=== PATIENT | female | born 1950 | race Caucasian/White ===

== ENCOUNTER 2019-12-11 21:26 | Outpatient (REF) | payer BC, SELFPAY ==
[2019-12-11 21:22] LABS: Anion Gap 7.2 mmol/L (3-11); BUN 22 mg/dL (7-18); CO2 29.8 mmol/L (21.0-32.0); CREATININE 0.85 mg/dL (0.55-1.02); Chloride 101 mmol/L (98-107); Glucose 100 mg/dL (74-106); Potassium 3.8 mmol/L (3.5-5.1); Sodium 138 mmol/L (136-145); TSH 1.51 uIU/mL (0.36-3.74)
== END 2019-12-11 21:46 ==
LOC: NCHCN 21:26
PROVIDERS: PCP Internal Medicine; Visit Provider Internal Medicine
DX: I10 Essential (primary) hypertension (principal)
CPT/HCPCS: 80048; 84443

== ENCOUNTER 2021-05-27 16:21 | Outpatient (REF) | payer OTHER, SELFPAY ==
[2021-05-27 20:10] LABS: Anion Gap 6.8 mmol/L (3-11); BUN 21 mg/dL (7-18); CO2 28.2 mmol/L (21.0-32.0); CREATININE 0.9 mg/dL (0.55-1.02); Calcium 8.8 mg/dL (8.5-10.1); Chloride 101 mmol/L (98-107); Glucose 100 mg/dL (74-106); Sodium 136 mmol/L (136-145); TSH 1.36 uIU/mL (0.36-3.74)
== END 2021-05-27 16:22 | disposition home or self-care (01) ==
LOC: NCHCN 16:21
PROVIDERS: PCP Internal Medicine; Visit Provider Internal Medicine
DX: I10 Essential (primary) hypertension (principal); L93.0 Discoid lupus erythematosus
CPT/HCPCS: 80048; 84443

== ENCOUNTER 2022-08-03 15:22 | Outpatient (REF) | payer OTHER, SELFPAY ==
[2022-08-03 20:49] LABS: Bacteria Negative HPF (Negative); C & S Indicated? No; Casts Negative LPF (Negative); Crystals Negative HPF (Negative); Epithelial Cells Few HPF (Negative); Mucus Negative (Negative); RBC 0-2 HPF (0-2); WBC 0-2 HPF (0-5)
[2022-08-03 21:19] LABS: Anion Gap 5.4 mmol/L (3-11); BUN 21 mg/dL (7-18); CO2 32.6 mmol/L (21.0-32.0); Calcium 8.8 mg/dL (8.5-10.1); Chloride 99 mmol/L (98-107); Estimated GFR 59.86 (mL/min/1.73m2); Glucose 95 mg/dL (74-106); Potassium 3.8 mmol/L (3.5-5.1); Sodium 137 mmol/L (136-145); TSH 1.58 uIU/mL (0.36-3.74)
== END 2022-08-03 15:23 | disposition home or self-care (01) ==
LOC: NCHCN 15:22
PROVIDERS: PCP Internal Medicine; Visit Provider Internal Medicine
DX: Z00.00 Encounter for general adult medical examination without abnormal findings (principal); M32.14 Glomerular disease in systemic lupus erythematosus; I10 Essential (primary) hypertension
CPT/HCPCS: 80048; 81015; 84443

== ENCOUNTER 2023-11-20 15:06 | Outpatient (REF) | payer OTHER, SELFPAY ==
[2023-11-20 19:53] LABS: Bilirubin Negative (Negative); Blood Trace-lysed (Negative); Clarity Clear (Clear); Glucose Negative (Negative); Ketones Negative (Negative); Leukocyte Esterase Negative (Negative); Nitrite Negative (Negative); Urobilinogen 0.2 mg/dL (Up to 0.2); pH 5.5 (5-8)
[2023-11-20 19:57] LABS: Anion Gap 11.9 mmol/L (3-11); BUN 15 mg/dL (7-18); CO2 26.1 mmol/L (21.0-32.0); CREATININE 0.9 mg/dL (0.55-1.02); Calcium 9.2 mg/dL (8.5-10.1); Chloride 103 mmol/L (98-107); Glucose 96 mg/dL (74-106); Potassium 3.9 mmol/L (3.5-5.1); Sodium 141 mmol/L (136-145)
[2023-11-20 20:17] LABS: Bacteria Rare HPF (Negative); C & S Indicated? No; Casts Negative LPF (Negative); Crystals Negative HPF (Negative); Epithelial Cells Rare HPF (Negative); Mucus Negative (Negative); Other Cells Rare Transitional (Negative); RBC 0-2 HPF (0-2)
== END 2023-11-20 15:07 | disposition home or self-care (01) ==
LOC: NCHCN 15:06
PROVIDERS: PCP Internal Medicine; Visit Provider Internal Medicine
DX: L93.0 Discoid lupus erythematosus (principal); I10 Essential (primary) hypertension
CPT/HCPCS: 80048; 81003; 81015